=== PATIENT | male | born 1995 | race Two or more races ===

== ENCOUNTER 2020-03-23 22:36 | Emergency (ER) | payer SELFPAY ==
[~2020-03-23] VITALS: Ht 185.4 cm; Wt 95.5 kg
[2020-03-23] MEDS ORDERED: EPIN0.3P3 IM (23:00)
[2020-03-24] MEDS ORDERED: IBUPROFEN 600 MG TABLET PO ONE (01:00)
[2020-03-24] MEDS ORDERED: CEPHALEXIN MONOHYDRATE 500 MG CAPSULE PO ONE (01:00)
[2020-03-24] MEDS ORDERED: HYDROCODONE/ACETAMINOPHEN 5-325 MG TABLET PO ONE (01:00)
[2020-03-24] MEDS ORDERED: DOXYCYCLINE HYCLATE 100 MG CAPSULE PO ONE (01:00)
[2020-03-24] MEDS ORDERED: DOXYCYCLINE HYCLATE 100 MG TABLET PO ONE (01:30)
[2020-03-24 01:37] VITALS: BP 122/71
== END 2020-03-24 01:37 | disposition home or self-care (01) ==
LOC: EMS 22:38
DX: L02.211 Cutaneous abscess of abdominal wall (principal); F17.210 Nicotine dependence, cigarettes, uncomplicated
CPT/HCPCS: 10160; 99406; Z7502; Z7610